=== PATIENT | female | born 2000 | race Caucasian/White ===

== ENCOUNTER → 2023-09-30 06:24 | Day surgery (SDC) | payer BC, SELFPAY | LOC: GI 06:24 | PROVIDERS: ATTENDING PHYSICIAN Internal Medicine Gastroenterology | DX: K21.00 Gastro-esophageal reflux disease with esophagitis, without bleeding (principal); K22.89 Other specified disease of esophagus; R12 Heartburn | CPT/HCPCS: 43239; 88305 ==